=== PATIENT | female | born 1975 | race Hispanic/Latino ===

== ENCOUNTER 2021-12-30 00:14 | Emergency (ER) | payer OTHER ==
[~2021-12-30] VITALS: Ht 157.5 cm; Wt 54.0 kg
[2021-12-30 00:57] LABS: BASOPHILS % (AUTO) 0.4 % (0.0-5.0); EOSINOPHILS % (AUTO) 0.2 % (0.0-8.0); HEMATOCRIT 35.4 % (36-48); MEAN CORPUSCULAR HEMOGLOBIN 29.6 pg (27.0-33.0); MEAN CORPUSCULAR HGB CONC 35.3 g/dL (32.0-36.0); MEAN CORPUSCULAR VOLUME 83.7 fL (79-99); MONOCYTES % (AUTO) 7.7 % (3.0-13.0); NEUTROPHILS % (AUTO) 63.3 % (40.0-77.0); PLATELET COUNT (AUTO) 225 K/uL (130-400); RED BLOOD CELL COUNT(AUTO) 4.23 MIL/uL (4.00-5.50); RED CELL DISTRIBUTION WIDTH 13.1 % (11.0-15.5); WHITE BLOOD COUNT (AUTO) 5.3 K/uL (4.8-10.8)
[2021-12-30 01:02] LABS: APPEARANCE,URINE CLEAR (CLEAR); BILIRUBIN,URINE NEGATIVE (NEGATIVE); COLOR,URINE YELLOW (YELLOW); GLUCOSE, URINE (UA) NEGATIVE (NEGATIVE); KETONES,URINE NEGATIVE (NEGATIVE); LEUKOCYTE ESTERASE ,URINE 250 Leu/uL (NEGATIVE); NITRATE,URINE NEGATIVE (NEGATIVE); OCCULT BLOOD,URINE NEGATIVE (NEGATIVE); PH,URINE 5.5 (5.0-8.0); PROTEIN,URINE 20 mg/dL (NEGATIVE); UROBILINOGEN,URINE 0.2 mg/dL (0.2-1.0)
[2021-12-30 01:09] LABS: HCG,QUALITATIVE URINE NEGATIVE (NEGATIVE)
[2021-12-30] MEDS: MAG/ALUM/SIMETH 30 ML UDCUP PO ONE (01:09)
[2021-12-30] MEDS: DICYCLOMINE HCL 10 MG/5 ML ML PO ONE (01:09)
[2021-12-30] MEDS: LIDOCAINE HCL 2% VISCOUS 15 ML UDCUP PO ONE (01:09)
[2021-12-30 01:22] LABS: BACTERIA,URINE RARE /HPF (None Seen); MUCUS,URINE FEW LPF (None Seen); SQUAMOUS EPITHELIAL CELL,UR FEW /HPF (0-2)
[2021-12-30 01:30] LABS: ALBUMIN 4.7 g/dL (3.5-5.0); CREATININE 0.7 mg/dL (0.5-1.5); POTASSIUM 3.6 mmol/L (3.5-5.1); TOTAL PROTEIN, SERUM 9.1 g/dL (6.0-8.3)
[2021-12-30] MEDS: 0.9%NACL 1000ML 1,000 ML IV ONE (02:08)
[2021-12-30] MEDS: ONDANSETRON 4MG INJ IVP ONE (02:08)
[2021-12-30] MEDS: KETOROLAC 15MG/ML VIAL (15MG/ML) IV ONE (02:11)
[2021-12-30] MEDS ORDERED: ESOM20CA31 PO (03:02)
[2021-12-30] MEDS ORDERED: MAG-55 PO (03:02)
[2021-12-30 03:12] VITALS: BP 104/47
== END 2021-12-30 03:27 | disposition home or self-care (01) ==
LOC: EDH 00:14
DX: K29.70 Gastritis, unspecified, without bleeding (principal); E86.0 Dehydration; Z79.1 Long term (current) use of non-steroidal anti-inflammatories (NSAID)
CPT/HCPCS: 99284; 96374; 96361; 96375; 80053; 83690; 85025; 87088; 81001; 81025; 36415; 74018; J7030; J2405; J1885

== ENCOUNTER 2024-06-16 18:39 | Emergency (ER) | payer BC ==
[~2024-06-16] VITALS: Ht 157.5 cm; Wt 49.9 kg
[~2024-06-16 18:39] MED LIST: ESOM20CA31 PO; MAG-55 PO
[2024-06-16 19:22] VITALS: TEMP 98.1
[2024-06-16 19:24] LABS: BASOPHILS # (AUTO) 0.02 K/uL (0.00-0.20); BASOPHILS % (AUTO) 0.5 % (0.0-5.0); EOSINOPHILS # (AUTO) 0.02 K/uL (0.00-0.70); EOSINOPHILS % (AUTO) 0.5 % (0.0-8.0); HEMATOCRIT 35.8 % (36-48); IMMATURE GRANULOCYTE ABSOLUTE 0.01 K/uL (0-1); LYMPHOCYTES # (AUTO) 1.6 K/uL (1.0-4.8); LYMPHOCYTES % (AUTO) 39.5 % (21.0-51.0); MEAN CORPUSCULAR HEMOGLOBIN 29.4 pg (27.0-33.0); MEAN CORPUSCULAR HGB CONC 34.4 g/dL (32.0-36.0); MEAN CORPUSCULAR VOLUME 85.6 fL (79-99); MONOCYTES # (AUTO) 0.4 K/uL (0.1-1.0); MONOCYTES % (AUTO) 8.9 % (3.0-13.0); NEUTROPHILS % (AUTO) 50.4 % (40.0-77.0); PLATELET COUNT (AUTO) 197 K/uL (130-400); RED BLOOD CELL COUNT(AUTO) 4.18 MIL/uL (4.00-5.50); RED CELL DISTRIBUTION WIDTH 13.6 % (11.0-15.5)
[2024-06-16] MEDS: LORazepam 1 MG TABLET PO ONE (19:24)
[2024-06-16 19:32] LABS: CREATININE 0.7 mg/dL (0.5-1.0); POTASSIUM 3.7 mmol/L (3.5-5.1)
[2024-06-16 19:47] LABS: APPEARANCE,URINE CLEAR (CLEAR); BILIRUBIN,URINE NEGATIVE (NEGATIVE); COLOR,URINE LIGHT-YELLOW (YELLOW); GLUCOSE, URINE (UA) NEGATIVE (NEGATIVE); KETONES,URINE NEGATIVE (NEGATIVE); LEUKOCYTE ESTERASE ,URINE 250 Leu/uL (NEGATIVE); NITRATE,URINE NEGATIVE (NEGATIVE); OCCULT BLOOD,URINE NEGATIVE (NEGATIVE); PH,URINE 7.5 (5.0-8.0); PROTEIN,URINE NEGATIVE (NEGATIVE); UROBILINOGEN,URINE 0.2 mg/dL (0.2-1.0)
[2024-06-16 19:50] LABS: ADD UA MICROSCOPIC YES
[2024-06-16 19:51] LABS: AMPHET/METH SCREEN,URINE NEGATIVE (NEGATIVE); BARBITURATE SCREEN, URINE NEGATIVE (NEGATIVE); BENZODIAZEPINES SCREEN,URINE NEGATIVE (NEGATIVE); CANNABINOID SCREEN,URINE NEGATIVE (NEGATIVE); COCAINE SCREEN,URINE NEGATIVE (NEGATIVE); OPIATE SCREEN,URINE NEGATIVE (NEGATIVE); PHENCYCLIDINE SCREEN,URINE NEGATIVE (NEGATIVE)
[2024-06-16 20:00] LABS: MUCUS,URINE RARE LPF (None Seen); RBC,URINE 0-1 /HPF (0-1)
[2024-06-16] MEDS: 0.9%NACL 1000ML 1,000 ML IV ONE (20:23)
--- NOTE | 2024-06-16 20:51 | ERN ---
General Chief Complaint: Anxiety/Panic Attack Stated Complaint: ANXIETY X 3 DAYS Time Seen by MD: 18:40 Time Seen by Midlevel: 18:40 Source: patient History of Present Illness Initial Comments The patient is a 49-year-old female with a past medical history of seizure disorder on carbamazepine presenting to the emergency department for evaluation of a feeling of anxiety. Patient states she has been unable to sleep for the last three days. She does report a recent seizure two weeks ago. This was witnessed. Prior to that the patient had not had any seizures in the past couple of years. She was not seen a neurologist recently but normally sees a neurologist in [place]. On arrival she specifically denies any recent illness, chest pain, shortness of breath, or any other symptom. Her only complaint is that she has been unable to sleep for the last three days. She bought Benadryl [id number] but has not yet started taking it. Allergies: Coded Allergies: No Known Drug Allergies (Unverified Allergy, Unknown, 12/30/21) Home Meds Active Scripts Mag Hydrox/Al Hydrox/Simeth (Maalox Maximum Strength Susp) 355 Ml Oral.susp, 10 ML PO QID for PAIN, #150 ML Prov:JORI HILLMAN MD 12/30/21 Esomeprazole Magnesium (Nexium) 20 Mg Capsule.dr, 20 MG PO DAILY, #30 CAP Prov:JORI HILLMAN MD 12/30/21 Past Medical History Past Medical History: Seizure Past Surgical History: Social History Social History: Negative, Lives with family Female( History) History: Not Applicable ROS Dictation CONSTITUTIONAL: Negative except for HPI HEAD/FACE: Negative except for HPI EENT: Negative except for HPI RESPIRATORY: Negative except for HPI GASTROINTESTINAL/ABDOMINAL: Negative except for HPI GENITOURINARY: Negative except for HPI MUSCULOSKELETAL: Negative except for HPI INTEGUMENTARY: Negative except for HPI NEUROLOGICAL/PSYCH: Negative except for HPI HEMATOLOGIC/LYMPHATIC: Negative except for HPI All Systems Negative, Except as noted above. 13 point review of systems assessed and all negative except for above. Physical Exam Physical Exam Dictation Vital Signs reviewed General Appearance: Alert, oriented x 3, no acute distress, well developed, nourished. Head and Face: non-traumatic. Eyes: PERRL, pink conjunctivas, eyelid no trauma, anterior chamber with arcus senilis. Ears: Pinnas intact and no signs of trauma or erythema ear canals clear and no discharge TM no erythema Nose: No discharge, no bleeding. Oropharynx: Mouth normal, tongue pink, pharynx clear,no erythema, tonsils no exudates, no abscesses noted, mucous membrane moist Neck: Supple, non-tender, no thyromegaly, no masses, no JVD, no bruits Breast:Deferred Chest:No tenderness, no crepitus, no paradoxical movement, no retractions Lungs:Clear, well-ventilated, symmetric, no rales, no wheezing, no rhonchi, no stridor, good breath sounds bilaterally Heart: Regular rate, regular rhythm, no murmur, no gallops Vascular: no peripheral edema, Abdomen: Soft, positive bowel sounds, nondistended, no guarding, nontender, no rebound, no masses no hepatomegaly, no splenomegaly, no Koenig's sign, no hernias. Rectal: Deferred Genital: Deferred Neurological: Normal speech, motor function intact, sensory function intact Musculoskeletal: Neck nontender, full range of motion, back nontender, full range of motion, Extremities: nontender, full range of motion Skin: Color pink, dry, no turgor, no rash, no lacerations, no abrasions, no contusions. Lymphatic: Deferred Results Laboratory and Microbiology Lab and Micro Result Laboratory Tests Test 06/16/24 19:07 06/16/24 19:12 Urine Color LIGHT-YELLOW (YELLOW) Urine Appearance CLEAR (CLEAR) Urine pH 7.5 (5.0-8.0) Urine Specific [place] 1.010 (1.001-1.031) Urine Protein NEGATIVE mg/dL (NEGATIVE) Urine Glucose (UA) NEGATIVE mg/dL (NEGATIVE) Urine Ketones NEGATIVE mg/dL (NEGATIVE) Urine Occult Blood NEGATIVE (NEGATIVE) Urine Nitrate NEGATIVE (NEGATIVE) Urine Bilirubin NEGATIVE mg/dL (NEGATIVE) Urine Urobilinogen 0.2 mg/dL (0.2-1.0) Urine Leukocyte Esterase 250 Camila/uL (NEGATIVE) H Urine RBC 0-1 /HPF (0-1) Urine WBC 6-10 /HPF (0-1) H Urine Bacteria None /HPF (None Seen) Urine Opiates Screen NEGATIVE (NEGATIVE) Urine Barbiturates Screen NEGATIVE (NEGATIVE) Urine Phencyclidine Screen NEGATIVE (NEGATIVE) Urine Amphetamines Screen NEGATIVE (NEGATIVE) Urine Benzodiazepines Screen NEGATIVE (NEGATIVE) Urine Cocaine Screen NEGATIVE (NEGATIVE) Urine Marijuana (THC) Screen NEGATIVE (NEGATIVE) White Blood Count 4.0 K/uL (4.8-10.8) L Red Blood Count 4.18 MIL/uL (4.00-5.50) Hemoglobin 12.3 g/dL (12.0-16.0) Hematocrit 35.8 % (36-48) L Mean Corpuscular Volume 85.6 fL (79-99) Mean Corpuscular Hemoglobin 29.4 pg (27.0-33.0) Mean Corpuscular Hemoglobin Concent 34.4 g/dL (32.0-36.0) Red Cell Distribution Width 13.6 % (11.0-15.5) Platelet Count 197 K/uL (130-400) Mean Platelet Volume 11.1 fL (7.5-10.5) H Immature Granulocyte % (Auto) 0.2 % (0-1) Neutrophils (%) (Auto) 50.4 % (40.0-77.0) Lymphocytes (%) (Auto) 39.5 % (21.0-51.0) Monocytes (%) (Auto) 8.9 % (3.0-13.0) Eosinophils (%) (Auto) 0.5 % (0.0-8.0) Basophils (%) (Auto) 0.5 % (0.0-5.0) Neutrophils # (Auto) 2.0 K/uL (1.8-7.7) Lymphocytes # (Auto) 1.6 K/uL (1.0-4.8) Monocytes # (Auto) 0.4 K/uL (0.1-1.0) Eosinophils # (Auto) 0.02 K/uL (0.00-0.70) Basophils # (Auto) 0.02 K/uL (0.00-0.20) Absolute Immature Granulocyte (auto 0.01 K/uL (0-1) Nucleated Red Blood Cells 0.0 % (0.0-0.19) Sodium Level 128 mmol/L (136-145) L Potassium Level 3.7 mmol/L (3.5-5.1) Chloride Level 91 mmol/L (101-111) L Carbon Dioxide Level 30 mmol/L (21-32) Blood Urea Nitrogen 7 mg/dL (7-18) Creatinine 0.7 mg/dL (0.5-1.0) Glomerular Filtration Rate Calc 106 mL/min (>90) Random Glucose 99 mg/dL (70-105) Total Calcium 9.1 mg/dL (8.5-10.1) Troponin I High Sensitivity 4 ng/L (4-50) Labs Reviewed?: Yes MDM MDM: The patient is a 49-year-old female with a past medical history of seizure disorder on carbamazepine presenting to the emergency department for evaluation of a feeling of anxiety. Patient states she has been unable to sleep for the last three days. She does report a recent seizure two weeks ago. This was witnessed. Prior to that the patient had not had any seizures in the past couple of years. She was not seen a neurologist recently but normally sees a neurologist in [place]. On arrival she specifically denies any recent illness, chest pain, shortness of breath, or any other symptom. Her only complaint is that she has been unable to sleep for the last three days. She bought Benadryl [id number] but has not yet started taking it. On physical examination the patient is in no acute distress. Initial vital signs are stable. I obtain basic lab blood work to rule out any electrolyte derangements or anemia. CBC shows leukopenia with a white blood cell count of 4.0. Hemoglobin is stable at 12.3. Platelet count is normal. Chemistries reveal hyponatremia and hypochloremia consistent with dehydration. Urinalysis does not show any evidence of infection. Urine drug screen is negative. Patient was rehydrated with1 L of IV fluids. She was given one mg of Ativan p.o.. She already has 50 mg of Benadryl at home and will be taking it tomorrow. She will be following up with the primary care doctor and we will be asking for a neurology referral for outpatient management. Patient is stable for discharge. Differential diagnosis: Insomnia, dehydration, electrolyte abnormality, There are no social concerns with this patient. Prescription drug management Prescriptions will include: None Medical management and examination interpretation discussions were had by me with other qualified healthcare professionals as indicated for the patient's care. ED Course Orders Procedure Category Date Status Time Cbc With Differential LAB 06/16/24 Complete 18:58 Basic Metabolic Panel LAB 06/16/24 Complete 18:58 12 Lead Ekg Tracing- EKG 06/16/24 Logged Technical 18:58 Troponin I High LAB 06/16/24 Complete Sensitivity 18:58 Drug Screen Urine LAB 06/16/24 Complete 18:58 Urinalysis Profile LAB 06/16/24 Complete 18:58 Lorazepam 1 Mg PHA 06/16/24 Complete (Ativan) 19:00 Culture Urine CRISTEL 06/16/24 In Process 19:51 0.9%Nacl 1000ml (Ns PHA 06/16/24 Complete 1000ml) 20:00 Current Medications Medications (Trade) Dose Ordered Sig/Faiza Route PRN Reason Start Time Stop Time Status Last Admin Dose Admin Lorazepam (AtiVAN) 1 mg ONCE ONCE PO 06/16/24 19:00 06/16/24 19:02 DC 06/16/24 19:24 Sodium Chloride 1,000 ml @ 0 mls/hr ONCE ONCE IV 06/16/24 20:00 06/16/24 20:01 DC 06/16/24 20:23 Vital Signs Date Time Temp Pulse Resp B/P (MAP) Pulse Ox O2 Delivery O2 Flow Rate FiO2 06/16/24 19:22 98.1 70 16 110/70 98 Room Air* 0 21 06/16/24 18:39 98.1 73 20 111/72 100 Room Air 0 DX & DISP Disposition: Discharge Departure Impression: Primary Impression: Dehydration Additional Impression: Insomnia Condition: Stable Additional Instructions: Your blood work today is consistent with dehydration. The remainder of your blood work is unremarkable. You may take the Benadryl as needed. Follow up with your primary care doctor. You will need to see a neurologist over the next couple of weeks. You can follow up with your doctor in they can refer you. If you develop any new or worsening symptoms please report to the ER for further evaluation. Referrals: ADONIS GANNON (PCP) Time of Disposition: 20:28 I have reviewed the case, and I agree with, Diagnosis and Plan I performed the substantive portion of the visit. I have reviewed and personally made and approve the management plan that is documented in the note by myself or the SOLO. I acknowledge for responsibility for the patient's management plan. GLADIS BERNSTEIN Jun 16, 2024 20:51
[2024-06-16 21:13] VITALS: BP 115/68; PULSE 68; RESP 16; O2SAT 99
--- NOTE | 2024-06-17 06:06 | EKG ---
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
== END 2024-06-16 21:17 | disposition home or self-care (01) ==
LOC: EDH 18:39
DX: E86.0 Dehydration (principal); G47.00 Insomnia, unspecified; G40.909 Epilepsy, unspecified, not intractable, without status epilepticus; Z79.899 Other long term (current) drug therapy; Z98.890 Other specified postprocedural states
CPT/HCPCS: 99284; 84484; 80048; 80305; 85025; 87086; 36415; 93005; 81001; J7030